=== PATIENT | male | born 1980 | race Two or more races ===

== ENCOUNTER 2025-03-23 20:38 | Emergency (ER) | payer OTHER ==
[2025-03-23 20:55] VITALS: BP 138/79; PULSE 85; RESP 18; TEMP 98.1; BMI 28.4
[2025-03-23 22:08] LABS: ABSOLUTE IMMATURE GRANULOCYTES 0.03 x10^3/uL (0.0-0.031); BASOPHILS # 0.09 x10^3/uL (0.01-0.08); EOSINOPHIL % 3.2 % (0.8-7.0); EOSINOPHILS # 0.22 x10^3/uL (0.04-0.54); MCHC 33.3 g/dl (32.3-36.5); MEAN CELL VOLUME 91.3 fl (79.0-92.2); MEAN PLT VOLUME 11.1 fl (9.4-12.4); MONOCYTE # 0.67 x10^3/uL (0.30-0.82); MONOCYTE % 9.7 % (5.3-12.2); RDW 12.5 % (12.1-15.9)
[2025-03-23 22:27] LABS: GLUCOSE,RANDOM 99.0 mg/dL (74-106)
[2025-03-23 22:28] LABS: CO2 28.0 mmol/L (21-32)
[2025-03-23 22:31] LABS: CREATININE 1.2 mg/dL (0.55-1.3); SGOT/AST 29.0 U/L (15-37); SGPT/ALT 48.0 U/L (13-61)
[2025-03-23 22:32] LABS: TOT PROT 6.9 g/dl (6.4-8.2)
[2025-03-23 22:34] LABS: ALK PHOS 81.0 U/L (45-117)
== END 2025-03-24 00:59 | disposition home or self-care (01) ==
LOC: JER 20:38
DX: R07.2 Precordial pain (principal)
CPT/HCPCS: 36415; 71046-TC-FY; 80053; 84484; 85025; 93005; 93010; 99285-25